=== PATIENT | male | born 1975 | race Caucasian/White ===

== ENCOUNTER 2017-04-22 13:32 | Emergency (ER) | payer SELFPAY | END 2017-04-22 13:33 | disposition left against medical advice (07) | LOC: ED 13:32 | DX: M54.9 Dorsalgia, unspecified (principal); Z53.21 Procedure and treatment not carried out due to patient leaving prior to being seen by health care provider ==

== ENCOUNTER 2017-07-12 16:41 | Emergency (ER) | payer BC ==
[2017-07-12 16:51] VITALS: BP 125/74
--- NOTE | 2017-07-12 19:37 | Emergency Department Report ---
Eye Injury/Foreign Body - HPI Duration: 3 weeks Eye Location: Bilateral Severity: Mild Tetanus Status: Up to Date Eye Symptoms: Eye Pain: No, Blurred Vision: No, Eye Redness: Yes, Grinding/ Hammering Metal: No, Used Eye Protection: No, Contact Lens Use: No, Recalls Injury: No, Photophobia: No Other History: 42-year-old male past medical history none presents with complaint of 2-3 weeks of bilateral eyelid redness and swelling slightly worse on left eyelid and right eyelid. Patient has visible sty on left upper eyelid. Denies any eye pain or blurry vision. Primarily complaining of eyelid swelling states he has been using warm compresses with minimal relief of the swelling. States he feels pressure sensation in left upper eyelid but does not have discrete pain. Denies wearing contact lenses. Denies any direct trauma to eyes. Does state that he has some slight mucoid discharge from both eyes which has been intermittent over the last 3 weeks. ED Review of Systems ROS: Stated complaint: EYES SWELLING Other details as noted in HPI Constitutional: denies: chills, fever Eyes: as per HPI. denies: eye pain, eye discharge, vision change ENT: denies: ear pain, throat pain Respiratory: denies: cough, shortness of breath, wheezing Cardiovascular: denies: chest pain, palpitations Endocrine: no symptoms reported Gastrointestinal: denies: abdominal pain, nausea, diarrhea Genitourinary: denies: urgency, dysuria Musculoskeletal: denies: back pain, joint swelling, arthralgia Skin: denies: rash, lesions Neurological: denies: headache, weakness, paresthesias Psychiatric: denies: anxiety, depression Hematological/Lymphatic: denies: easy bleeding, easy bruising ED Past Medical Hx - Past Medical History Previous Medical History?: No - Surgical History Past Surgical History?: No - Social History Smoking Status: Current Every Day Smoker Substance Use Type: None - Medications Home Medications: Home Medications Medication Instructions Recorded Confirmed Last Taken Type Erythromycin [Erythromycin Ophth 1 applic OP QID #1 tube 07/12/17 Unknown Rx Oint] Ibuprofen [Motrin] 800 mg PO Q8HR PRN #20 tablet 07/12/17 Unknown Rx Tetrahydrozoline HCl/Zinc Sulf 1 drop OP Q4H PRN #1 drops 07/12/17 Unknown Rx [Visine Allergy Relief Drop] Eye Injury Exam - Exam General: Vital signs noted. No distress. Alert and acting appropriately. - Visual Acuity Bilateral Vision Acuity Degree: 20/20 (visual acuity is 20/20 in both eyes and bilaterally ) Eye Exam: Left Eye Foreign Body, Both Injection, Both EOMI ED Course Vital Signs 07/12/17 16:49 Temperature 98.9 F Pulse Rate 79 Respiratory 18 Rate Blood Pressure 125/74 O2 Sat by Pulse 100 Oximetry ED Medical Decision Making - Medical Decision Making A/P: Left-sided hordeolum, bilateral blepharitis 1-erythromycin ointment, antihistamine eyedrops 2-Motrin when necessary 3-follow-up with ophthalmology 4-visual acuity is 20/20 bilaterally and 20/20 each eye Critical care attestation.: If time is entered above; I have spent that time in minutes in the direct care of this critically ill patient, excluding procedure time. ED Disposition Clinical Impression: Hordeolum externum left upper eyelid Blepharitis of both eyes Qualifiers: Blepharitis type: unspecified type Eyelid: both upper and lower Qualified Code( s): H01.001 - Unspecified blepharitis right upper eyelid; H01.002 - Unspecified blepharitis right lower eyelid; H01.004 - Unspecified blepharitis left upper eyelid; H01.005 - Unspecified blepharitis left lower eyelid Disposition: - TO HOME OR SELFCARE Is pt being admited?: No Does the pt Need Aspirin: No Condition: Stable Instructions: Blepharitis (ED), Stye (ED) Prescriptions: Erythromycin [Erythromycin Ophth Oint] 1 applic OP QID #1 tube Ibuprofen [Motrin] 800 mg PO Q8HR PRN #20 tablet PRN Reason: Pain Tetrahydrozoline HCl/Zinc Sulf [Visine Allergy Relief Drop] 1 drop OP Q4H PRN # 1 drops PRN Reason: Dry Eye(S) Referrals: TOMMY SALEH MD [Staff Physician] - 3-5 Days AMADOU SERRANO MD [Staff Physician] - 3-5 Days [facility] [Provider Group] - 3-5 Days Time of Disposition: 19:38
== END 2017-07-12 19:46 | disposition home or self-care (01) ==
LOC: ED 16:41
DX: H00.014 Hordeolum externum left upper eyelid (principal); H01.004 Unspecified blepharitis left upper eyelid; H01.001 Unspecified blepharitis right upper eyelid; F17.200 Nicotine dependence, unspecified, uncomplicated
CPT/HCPCS: 99282